=== PATIENT | male | born 1945 | race Caucasian/White ===

== ENCOUNTER 2017-04-18 13:10 | Inpatient (IN) | payer MEDICARE, OTHER ==
[2017-04-18 13:44] LABS: CHLORIDE,CL 106 mEq/L (98-106); SODIUM,NA 142 mEq/L (136-145)
[2017-04-18] MEDS ORDERED: Sodium Chloride 0.9% 10 ML Syringe FLUSH PRN (14:42)
[2017-04-18] MEDS ORDERED: Ondansetron 4 MG Tab.DIS PO PRN (14:42)
[2017-04-18] MEDS ORDERED: Acetaminophen 325 MG Tab PO PRN (14:42)
[2017-04-18] MEDS ORDERED: Furosemide 40 MG/4 ML VIAL IVPUSH ONE (14:46)
[2017-04-18] MEDS ORDERED: Enoxaparin 80 MG/0.8 ML Syringe SUBCUT SCH (15:00)
[2017-04-18] MEDS ORDERED: Pantoprazole 40 MG Vial IVPUSH SCH (15:00)
[2017-04-18] MEDS: Metoprolol Succinate 25 MG Tab.ER PO SCH (19:47)
[2017-04-18] MEDS: Zolpidem 5 MG Tab PO PRN (22:12)
[2017-04-19] MEDS: Lisinopril 20 MG Tab PO SCH (07:37)
[2017-04-19] MEDS: Amiodarone 200 MG Tab PO SCH (07:37)
[2017-04-19] MEDS: atorvaSTATin 10 MG Tab PO SCH ×2 (07:38→20:00)
[2017-04-19] MEDS: Clopidogrel 75 MG Tab PO SCH (07:39)
[2017-04-19] MEDS: Pantoprazole 40 MG Vial IVPUSH SCH (07:40)
[2017-04-19] MEDS: Metoprolol Succinate 25 MG Tab.ER PO SCH ×2 (07:41→20:00)
[2017-04-19] MEDS ORDERED: Enoxaparin 80 MG/0.8 ML Syringe SUBCUT SCH (08:00)
[2017-04-19] MEDS ORDERED: Aspirin 81 MG Tab.EC PO SCH (08:00)
[2017-04-19] MEDS ORDERED: metFORMIN 500 MG Tab.ER PO SCH (12:00)
--- NOTE | 2017-04-19 15:16 | PCM.PN ---
- General Info Date of Service: 04/19/17 Functional Status: Reports: Pain Controlled, Tolerating Diet. Denies: Ambulating - Review of Systems General: Denies: Weakness, Fatigue HEENT: Reports: No Symptoms Pulmonary: Reports: Shortness of Breath (feels shortness of breath is already improved). Denies: Cough Cardiovascular: Reports: Edema (LLE more edematous than right). Denies: Chest Pain, Lightheadedness Gastrointestinal: Reports: No Symptoms Genitourinary: Reports: No Symptoms Musculoskeletal: Reports: No Symptoms Skin: Reports: No Symptoms Neurological: Reports: No Symptoms - Patient Data Vitals - Most Recent: Last Vital Signs Temp 97.7 F 04/19/17 08:00 Pulse 85 04/19/17 08:00 Resp 18 04/19/17 08:00 BP 146/92 H 04/19/17 08:00 Pulse Ox 96 04/19/17 08:00 Weight - Most Recent: 243 lb 1.6 oz I&O - Last 24 Hours: Intake & Output 04/19/17 04/19/17 04/19/17 06:59 14:59 22:59 Intake Total 1150 Balance 1150 Lab Results Last 24 Hours: Laboratory Results - last 24 hr 04/18/17 04/18/17 04/19/17 Range/Units 17:23 20:22 07:00 Sodium 141 (136-145) mEq/L Potassium 4.0 (3.5-5.0) mEq/L Chloride 106 (98-106) mEq/L Carbon Dioxide 26 (21-32) mmol/L BUN 23 H (7-18) mg/dL Creatinine 1.3 (0.7-1.3) mg/dL Est Cr Clr Drug Dosing 59.75 mL/min Estimated GFR (MDRD) 55 L (>=60) mL/min Glucose 113 H (75-99) mg/dL POC Glucose 121 H 134 H (75-105) mg/dl Calcium 8.5 (8.4-10.1) mg/dL 04/19/17 Range/Units 07:33 Sodium (136-145) mEq/L Potassium (3.5-5.0) mEq/L Chloride (98-106) mEq/L Carbon Dioxide (21-32) mmol/L BUN (7-18) mg/dL Creatinine (0.7-1.3) mg/dL Est Cr Clr Drug Dosing mL/min Estimated GFR (MDRD) (>=60) mL/min Glucose (75-99) mg/dL POC Glucose 103 (75-105) mg/dl Calcium (8.4-10.1) mg/dL Med Orders - Current: Current Medications Acetaminophen (Tylenol) 650 mg PO Q4H PRN PRN Reason: Pain (Mild 1-3)/fever Amiodarone HCl (Cordarone) 200 mg PO DAILY [facility] Last Admin: 04/19/17 07:37 Dose: 200 mg Apixaban (Eliquis) 10 mg PO BID [facility] Atorvastatin Calcium (Lipitor) 10 mg PO BEDTIME [facility] Last Admin: 04/19/17 07:38 Dose: 10 mg Clopidogrel Bisulfate (Plavix) 75 mg PO DAILY [facility] Last Admin: 04/19/17 07:39 Dose: 75 mg Lisinopril (Prinivil) 10 mg PO DAILY [facility] Last Admin: 04/19/17 07:37 Dose: 10 mg [facility] Metoprolol Succinate (Toprol Xl) 12.5 mg PO BID [facility] Last Admin: 04/19/17 07:41 Dose: 12.5 mg Ondansetron HCl (Zofran Odt) 4 mg PO Q4H PRN PRN Reason: nausea, able to take PO Pantoprazole Sodium (Protonix Iv) 40 mg IVPUSH Q24H [facility] Last Admin: 04/19/17 07:40 Dose: 40 mg Sodium Chloride (Saline Flush) 10 ml FLUSH ASDIRECTED PRN PRN Reason: Keep Vein Open Zolpidem Tartrate (Ambien) 5 mg PO BEDTIME PRN PRN Reason: Sleep Last Admin: 04/18/17 22:12 Dose: 5 mg Discontinued Medications Aspirin (Halfprin) 81 mg PO BID [facility] Last Admin: 04/19/17 07:38 Dose: 81 mg Enoxaparin Sodium (Lovenox) 80 mg SUBCUT Q12H [facility] Last Admin: 04/18/17 16:15 Dose: 80 mg Enoxaparin Sodium (Lovenox) 80 mg SUBCUT Q12H [facility] Last Admin: 04/19/17 07:43 Dose: 80 mg Furosemide (Lasix) 40 mg IVPUSH ONETIME ONE Stop: 04/18/17 14:47 Last Admin: 04/18/17 16:16 Dose: 40 mg Metformin HCl (Glucophage Xr) 1,500 mg PO DAILY [facility] Last Admin: 04/19/17 14:31 Dose: Not Given Pantoprazole Sodium (Protonix Iv) 40 mg IVPUSH Q24H [facility] Last Admin: 04/18/17 16:16 Dose: 40 mg - Exam General: Alert, Oriented HEENT: Mucous Membr. Moist/[place] Neck: Supple Lungs: Clear to Auscultation, Normal Respiratory Effort Cardiovascular: Regular Rate, Regular Rhythm GI/Abdominal Exam: Normal Bowel Sounds, Soft, Non-Tender Extremities: Normal Inspection, Pedal Edema (pitting edema in LLE 2+, 1+ RLE) Skin: Warm, Dry Neurological: No New Focal Deficit - Problem List & Annotations (1) DVT (deep venous thrombosis) SNOMED Code(s): 127248988 Code(s): I82.409 - ACUTE EMBOLISM AND THOMBOS UNSP DEEP VN UNSP LOWER EXTREMITY Status: Acute Priority: High Current Visit: Yes Qualifiers: DVT location: lower extremity Affected thrombotic vein of extremity: popliteal Chronicity: acute Laterality: left Qualified Code(s): I82.432 - Acute embolism and thrombosis of left popliteal vein (2) Pulmonary embolism SNOMED Code(s): 66253802 Code(s): I26.99 - OTHER PULMONARY EMBOLISM WITHOUT ACUTE COR PULMONALE Status: Acute Priority: High Current Visit: Yes Qualifiers: Chronicity: acute Acute cor pulmonale presence: without acute cor pulmonale - Problem List Review Problem List Initiated/Reviewed/Updated: Yes - My Orders Last 24 Hours: My Active Orders 04/19/17 17:30 metFORMIN [Glucophage XR] 750 mg PO BIDMEALS - Assessment Assessment:: DVT/PE - Plan Plan:: Patient states is feeling much better today, slept well. Feels like appetite has even improved. Was found to have DVT in popliteal vein of LLE. Has been on Plavix and ASA since his stent placed in September. 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 Has felt well since that time. Has been combining consistently over the last 3 weeks and admits his activity level was down. Labs stable. Contacted Dr. Shepard, cardiology at [place] in regards to starting Eliquis in addition to his usual meds. Recommended continuing Plavix and either starting Coumadin or Eliquis and stopping the aspirin. Encouraged patient to ambulate in halls. If sats remain stable with activity, will discharge home tomorrow.
[2017-04-19] MEDS: metFORMIN 500 MG Tab.ER PO SCH (18:10)
[2017-04-19] MEDS: Apixaban 5 MG Tab PO SCH (20:00)
[2017-04-19] MEDS: Zolpidem 5 MG Tab PO PRN (20:05)
[2017-04-20 07:27] VITALS: BP 138/94
[2017-04-20] MEDS: metFORMIN 500 MG Tab.ER PO SCH (07:39)
[2017-04-20] MEDS: Amiodarone 200 MG Tab PO SCH (07:40)
[2017-04-20] MEDS: Apixaban 5 MG Tab PO SCH (07:40)
[2017-04-20] MEDS: Lisinopril 20 MG Tab PO SCH (07:40)
[2017-04-20] MEDS: Clopidogrel 75 MG Tab PO SCH (07:41)
[2017-04-20] MEDS: Metoprolol Succinate 25 MG Tab.ER PO SCH (07:41)
[2017-04-20] MEDS: Pantoprazole 40 MG Vial IVPUSH SCH (07:42)
[2017-04-20] MEDS ORDERED: Furosemide 40 MG Tab PO SCH (08:00)
--- NOTE | 2017-04-20 13:02 | PCM.DCSUM1 ---
Discharge Summary - Hospital Course Free Text/Narrative:: Patient presented to clinic to see Dr. Law with increased shortness of breath and fatigue. Had been combining steadily for about 3 weeks and had limited physical activity. Found to have DVT of left popliteal. Has been on Plavix and aspirin since September after having a stent placed. The stent uncoiled and required emergency CABG. Had done well since then. Admits that he has had swelling in his lower extremities but hadn't noted any increase in that. - Discharge Data Discharge Date: 04/20/17 Discharge Disposition: Home, Self-Care 01 Condition: Good - Discharge Diagnosis/Problem(s) (1) DVT (deep venous thrombosis) SNOMED Code(s): 079940203 ICD Code: I82.409 - ACUTE EMBOLISM AND THOMBOS UNSP DEEP VN UNSP LOWER EXTREMITY Status: Acute Priority: High Current Visit: Yes Qualifiers: DVT location: lower extremity Affected thrombotic vein of extremity: popliteal Chronicity: acute Laterality: left Qualified Code(s): I82.432 - Acute embolism and thrombosis of left popliteal vein (2) Pulmonary embolism SNOMED Code(s): 55730220 ICD Code: I26.99 - OTHER PULMONARY EMBOLISM WITHOUT ACUTE COR PULMONALE Status: Acute Priority: High Current Visit: Yes Qualifiers: Chronicity: acute Acute cor pulmonale presence: without acute cor pulmonale (3) CHF (congestive heart failure) SNOMED Code(s): 48693286 ICD Code: I50.9 - HEART FAILURE, UNSPECIFIED Status: Acute Priority: High Current Visit: Yes Qualifiers: Congestive heart failure type: systolic Congestive heart failure chronicity : acute Qualified Code(s): I50.21 - Acute systolic (congestive) heart failure - Patient Summary/Data Complications: none Hospital Course: Patient admitted and started on Lovenox SQ for DVT, questionable PE. Also given IV Lasix and had good results and improvement of overall shortness of breath. Admits that hasn't felt this good in weeks. Tolerating ambulation without drop in oxygen sats. Sleeping well, appetite has returned. Echocardiogram that had been done shows decreased ejection fracture. He has not seen cardiology since the CABG, only had follow up with the surgeon. Yesterday, I contacted Dr. Shepard, cardiology, on recommendations about adding Eliquis with use of Plavix and ASA. Advised to stop aspirin so this was accomplished. Dr. Law had reduced his Lisinopril but blood pressures are creeping up so will resume his dose back to 20 mg daily. Will schedule patient to follow up with cardiology for acute systolic CHF. Patient will be discharged home on Lasix, Eliquis, Ambien and his usual meds, stop ASA. Follow up with Dr. Law in 2 weeks. - Patient Instructions Diet: Heart Healthy Diet Activity: As Tolerated - Discharge Plan Prescriptions/Med Rec: Apixaban [Eliquis] 10 mg PO BID #12 tablet Furosemide [Lasix] 40 mg PO DAILY #30 tablet Zolpidem [Ambien] 5 mg PO BEDTIME PRN #30 tablet PRN Reason: Insomnia Home Medications: Home Meds Multivit-Min/FA/Lycopene/Lut [Centrum Silver Tablet] 1 tab PO DAILY 06/23/15 [ History] Amiodarone HCl [Pacerone] 200 mg PO DAILY 10/19/16 [History] Cholecalciferol (Vitamin D3) [Vitamin D3] 4,000 units PO DAILY 10/19/16 [History ] Clopidogrel [Plavix] 75 mg PO DAILY 10/19/16 [History] Hydrocodone/Acetaminophen [Hydrocodon-Acetaminophn 10-325] 1 each PO Q4HR PRN [History] Lisinopril 20 mg PO DAILY 10/19/16 [History] Omeprazole 20 mg PO DAILY 10/19/16 [History] atorvaSTATin Calcium [Atorvastatin Calcium] 10 mg PO DAILY 10/19/16 [History] metFORMIN [Glucophage XR] 750 mg PO BID 10/19/16 [History] Metoprolol Succinate [Toprol XL] 12.5 mg PO BID 04/18/17 [History] Apixaban [Eliquis] 10 mg PO BID #12 tablet 04/20/17 [Rx] Furosemide [Lasix] 40 mg PO DAILY #30 tablet 04/20/17 [Rx] Zolpidem [Ambien] 5 mg PO BEDTIME PRN #30 tablet 04/20/17 [Rx] - Discharge Summary/Plan Comment DC Time >30 min.: No Discharge Summary/Plan Comment: Discharge home on Eliquis 10 BID for total 7 days and then switch to 5 mg BID. Continue Plavix. Start Lasix and Ambien and usual meds. Follow up with Dr. Law in 2 weeks and awaiting appointment with cardiology at [place] as well. - General Info Date of Service: 04/20/17 Admission Dx/Problem (Free Text: DVT/PE Acute systolic CHF Functional Status: Reports: Pain Controlled, Tolerating Diet, Ambulating - Review of Systems General: Denies: Fever, Weakness, Fatigue HEENT: Reports: No Symptoms Pulmonary: Denies: Shortness of Breath, Cough Cardiovascular: Reports: Edema. Denies: Chest Pain, Lightheadedness Gastrointestinal: Reports: No Symptoms Genitourinary: Reports: No Symptoms Musculoskeletal: Reports: No Symptoms Skin: Reports: No Symptoms Neurological: Reports: No Symptoms - Patient Data Vitals - Most Recent: Last Vital Signs Temp 97.4 F 04/20/17 07:26 Pulse 80 04/20/17 07:41 Resp 20 04/20/17 07:26 BP 138/94 H 04/20/17 07:41 Pulse Ox 98 04/20/17 07:26 Weight - Most Recent: 245 lb 5.992 oz I&O - Last 24 hours: Intake & Output 04/19/17 04/20/17 04/20/17 22:59 06:59 14:59 Intake Total 3205 1150 Output Total 600 2450 1100 Balance 2605 -1300 -1100 Lab Results - Last 24 hrs: Laboratory Results - last 24 hr 04/19/17 04/19/17 04/19/17 Range/Units 11:34 17:49 20:33 Sodium (136-145) mEq/L Potassium (3.5-5.0) mEq/L Chloride (98-106) mEq/L Carbon Dioxide (21-32) mmol/L BUN (7-18) mg/dL Creatinine (0.7-1.3) mg/dL Est Cr Clr Drug Dosing mL/min Estimated GFR (MDRD) (>=60) mL/min Glucose (75-99) mg/dL POC Glucose 147 H 120 H 185 H (75-105) mg/dl Calcium (8.4-10.1) mg/dL 04/20/17 04/20/17 04/20/17 Range/Units 07:15 07:26 12:06 Sodium 141 (136-145) mEq/L Potassium 4.3 (3.5-5.0) mEq/L Chloride 106 (98-106) mEq/L Carbon Dioxide 27 (21-32) mmol/L BUN 20 H (7-18) mg/dL Creatinine 1.3 (0.7-1.3) mg/dL Est Cr Clr Drug Dosing 59.75 mL/min Estimated GFR (MDRD) 55 L (>=60) mL/min Glucose 125 H (75-99) mg/dL POC Glucose 125 H 115 H (75-105) mg/dl Calcium 8.6 (8.4-10.1) mg/dL Med Orders - Current: Current Medications Acetaminophen (Tylenol) 650 mg PO Q4H PRN PRN Reason: Pain (Mild 1-3)/fever Amiodarone HCl (Cordarone) 200 mg PO DAILY [facility] Last Admin: 04/20/17 07:40 Dose: 200 mg Apixaban (Eliquis) 10 mg PO BID [facility] Last Admin: 04/20/17 07:40 Dose: 10 mg Atorvastatin Calcium (Lipitor) 10 mg PO BEDTIME [facility] Last Admin: 04/19/17 20:00 Dose: 10 mg Clopidogrel Bisulfate (Plavix) 75 mg PO DAILY [facility] Last Admin: 04/20/17 07:41 Dose: 75 mg Furosemide (Lasix) 40 mg PO DAILY [facility] Last Admin: 04/20/17 07:42 Dose: 40 mg Lisinopril (Prinivil) 10 mg PO DAILY [facility] Last Admin: 04/20/17 07:40 Dose: 10 mg Metformin HCl (Glucophage Xr) 750 mg PO BIDMEALS [facility] Last Admin: 04/20/17 07:39 Dose: 750 mg Metoprolol Succinate (Toprol Xl) 12.5 mg PO BID [facility] Last Admin: 04/20/17 07:41 Dose: 12.5 mg Ondansetron HCl (Zofran Odt) 4 mg PO Q4H PRN PRN Reason: nausea, able to take PO Pantoprazole Sodium (Protonix Iv) 40 mg IVPUSH Q24H [facility] Last Admin: 04/20/17 07:42 Dose: 40 mg Sodium Chloride (Saline Flush) 10 ml FLUSH ASDIRECTED PRN PRN Reason: Keep Vein Open Zolpidem Tartrate (Ambien) 5 mg PO BEDTIME PRN PRN Reason: Sleep Last Admin: 04/19/17 20:05 Dose: 5 mg Discontinued Medications Aspirin (Halfprin) 81 mg PO BID [facility] Last Admin: 04/19/17 07:38 Dose: 81 mg Enoxaparin Sodium (Lovenox) 80 mg SUBCUT Q12H [facility] Last Admin: 04/18/17 16:15 Dose: 80 mg Enoxaparin Sodium (Lovenox) 80 mg SUBCUT Q12H [facility] Last Admin: 04/19/17 07:43 Dose: 80 mg Furosemide (Lasix) 40 mg IVPUSH ONETIME ONE Stop: 04/18/17 14:47 Last Admin: 04/18/17 16:16 Dose: 40 mg Metformin HCl (Glucophage Xr) 1,500 mg PO DAILY [facility] Last Admin: 04/19/17 14:31 Dose: Not Given Pantoprazole Sodium (Protonix Iv) 40 mg IVPUSH Q24H [facility] Last Admin: 04/18/17 16:16 Dose: 40 mg - Exam General: Reports: Alert, Oriented HEENT: Reports: Mucous Membr. Moist/[place] Neck: Reports: Supple Lungs: Reports: Clear to Auscultation, Normal Respiratory Effort Cardiovascular: Reports: Regular Rate, Regular Rhythm GI/Abdominal Exam: Normal Bowel Sounds, Soft, Non-Tender Extremities: Normal Inspection, Pedal Edema (1+ edema) Skin: Reports: Warm, Dry Neurological: Reports: No New Focal Deficit *Q Meaningful Use (DIS) - VTE *Q VTE Criteria *Q: - Stroke *Q Stroke Criteria *Q: - AMI *Q AMI Criteria *Q:
== END 2017-04-20 13:43 | disposition home or self-care (01) | DRG 299 ==
LOC: CC.US 13:10 → CC.MS 14:20 → UNDOADMIN 14:20 → CC.MS 14:43
PROVIDERS: ADMIT Family Medicine; ATTEND Family Medicine
DX: I82.432 Acute embolism and thrombosis of left popliteal vein (principal); I26.99 Other pulmonary embolism without acute cor pulmonale; I25.810 Atherosclerosis of coronary artery bypass graft(s) without angina pectoris; E78.5 Hyperlipidemia, unspecified; I11.0 Hypertensive heart disease with heart failure; I50.9 Heart failure, unspecified; R06.02 Shortness of breath; Z95.1 Presence of aortocoronary bypass graft; N40.0 Benign prostatic hyperplasia without lower urinary tract symptoms; E11.9 Type 2 diabetes mellitus without complications; Z88.1 Allergy status to other antibiotic agents; Z79.84 Long term (current) use of oral hypoglycemic drugs; Z79.82 Long term (current) use of aspirin; Z79.899 Other long term (current) drug therapy; Z79.02 Long term (current) use of antithrombotics/antiplatelets
CPT/HCPCS: 36415; 71020; 80048; 80053; 81001; 82962; 83880; 84443; 84484; 85025; 85379; 86140; 93005; 93010; 93306; A9270-GY; C9113; G0365; J1650; J1940

== ENCOUNTER 2017-05-18 08:45 | Emergency (ER) | payer MEDICARE, OTHER ==
[2017-05-18 08:52] VITALS: BP 126/89
--- NOTE | 2017-05-18 09:43 | EDM.PDOC ---
ED HPI GENERAL MEDICAL PROBLEM - General Chief Complaint: Cardiovascular Problem Stated Complaint: "fluid around heart again" Time Seen by Provider: 05/18/17 09:15 Source of Information: Reports: Patient, Family History Limitations: Reports: No Limitations - History of Present Illness INITIAL COMMENTS - FREE TEXT/NARRATIVE: Has been feeling more short of Breathe with coughing up yellow mucus. No fever or chills. voices concern that he has fluid around his heart again. Everybody in the house has been sick with URI symptoms and are improving. He doesn't seem to be getting better as fast. Has not noted any edema. Hasn't been sleeping as well. Was recently started on sleeping pills by Dr. Law and they help until about 3am and then he is awake for few hours and then sleeps again. Has not been having any chest pains. Does have cardiology appt June 13 in [place] for follow up. Onset: Gradual Location: Reports: Chest Quality: Denies: Pressure Associated Symptoms: Reports: cough w sputum, Shortness of Breath. Denies: Chest Pain, Fever/Chills, Nausea/Vomiting - Related Data Allergies Allergy/AdvReac Type Severity Reaction Status Date / Time amoxicillin trihydrate Allergy Rash Verified 05/18/17 08:52 [From Augmentin] potassium clavulanate Allergy Rash Verified 05/18/17 08:52 [From Augmentin] Home Meds: Home Meds Multivit-Min/FA/Lycopene/Lut [Centrum Silver Tablet] 1 tab PO DAILY 06/23/15 [ History] Amiodarone HCl [Pacerone] 200 mg PO DAILY 10/19/16 [History] Cholecalciferol (Vitamin D3) [Vitamin D3] 4,000 units PO DAILY 10/19/16 [History ] Clopidogrel [Plavix] 75 mg PO DAILY 10/19/16 [History] Lisinopril 20 mg PO DAILY 10/19/16 [History] Omeprazole 20 mg PO DAILY 10/19/16 [History] atorvaSTATin Calcium [Atorvastatin Calcium] 10 mg PO DAILY 10/19/16 [History] metFORMIN [Glucophage XR] 750 mg PO BID 10/19/16 [History] Metoprolol Succinate [Toprol XL] 12.5 mg PO BID 04/18/17 [History] Furosemide [Lasix] 40 mg PO DAILY #30 tablet 04/20/17 [Rx] Zolpidem [Ambien] 5 mg PO BEDTIME PRN #30 tablet 04/20/17 [Rx] Apixaban [Eliquis] 5 mg PO BID 05/18/17 [History] Past Medical History Cardiovascular History: Reports: Bypass, High Cholesterol, Hypertension, Stents , Other (See Below) Other Cardiovascular History: were placing stents during angiogram and tore aorta which needed repairing. Other Genitourinary History: BPH on history Neurological History: Reports: None Endocrine/Metabolic History: Reports: Diabetes, Type II Other Endocrine/Metabolic History: newly diagnosed diabetic on oral meds; says his BS runs about 140's in the mornings, discussed - Past Surgical History Musculoskeletal Surgical History: Reports: Knee Replacement Social & Family History - Family History Family Medical History: Noncontributory - Tobacco Use Smoking Status *Q: Never Smoker Used Tobacco, but Quit: Yes Month Tobacco Last Used: years - Caffeine Use Caffeine Use: Reports: Coffee - Recreational Drug Use Recreational Drug Use: No ED ROS GENERAL - Review of Systems Review Of Systems: See Below Constitutional: Reports: Weakness, Fatigue. Denies: Fever, Chills HEENT: Reports: Rhinitis, Sinus Problem. Denies: Ear Discharge, Vertigo Respiratory: Reports: No Symptoms Cardiovascular: Denies: Chest Pain, Edema GI/Abdominal: Reports: No Symptoms Musculoskeletal: Reports: No Symptoms Skin: Reports: No Symptoms Neurological: Reports: No Symptoms ED EXAM, GENERAL - Physical Exam Exam: See Below Exam Limited By: No Limitations General Appearance: Alert, WD/WN, No Apparent Distress Ears: Normal External Exam, Normal Canal Throat/Mouth: Normal Inspection, Normal Oropharynx Head: Atraumatic, Normocephalic Neck: Normal Inspection, Supple, Non-Tender, Full Range of Motion Respiratory/Chest: No Respiratory Distress, Lungs Clear, Normal Breath Sounds Cardiovascular: Normal Peripheral Pulses, Regular Rate, Rhythm, No Edema GI/Abdominal: Normal Bowel Sounds, Soft, Non-Tender, No Organomegaly Back Exam: Normal Inspection Extremities: Normal Inspection, No Pedal Edema, Normal Capillary Refill Neurological: Alert, Oriented, Normal Cognition Psychiatric: Normal Mood Skin Exam: Warm, Dry, Intact Course - Vital Signs Last Recorded V/S: Last Vital Signs Temp 97.1 F 05/18/17 08:50 Pulse 90 05/18/17 08:50 Resp 20 05/18/17 08:50 BP 126/89 05/18/17 08:50 Pulse Ox 97 05/18/17 09:37 - Orders/Labs/Meds Orders: Active Orders 24 hr Category Date Time Status Chest 2V [CR] Stat Exams 05/18/17 09:08 Taken Labs: Laboratory Tests 05/18/17 05/18/17 05/18/17 Range/Units 09:15 09:15 09:15 WBC 9.9 (5.0-10.0) 10^3/uL RBC 4.57 (4.50-6.00) 10^6/uL Hgb 13.1 L (14.0-18.0) g/dL Hct 41.1 (40.0-54.0) % MCV 89.9 (82.0-94.0) fL MCH 28.7 (27.0-32.0) pg MCHC 31.9 L (33.0-38.0) g/dL RDW Coeff of Shantel 15.2 H (11.0-15.0) % Plt Count 208 (150-400) 10^3/uL Neut % (Auto) 77.0 (35-85) % Lymph % (Auto) 13.0 (10-55) % [place] % (Auto) 8.6 (0-16) % Eos % (Auto) 1.1 (0-5) % Baso % (Auto) 0.3 (0-3) % Neut # (Auto) 7.58 H (1.80-7.00) 10^3/uL Lymph # (Auto) 1.28 (1.00-4.80) 10^3/uL [place] # (Auto) 0.85 H (0.00-0.80) 10^3/uL Eos # (Auto) 0.11 (0.00-0.45) 10^3/uL Baso # (Auto) 0.03 10^3/uL PT (9.7-12.3) SEC INR (0.92-1.18) APTT (24.5-30.9) SEC D-Dimer, Quantitative 0.79 H (0.00-0.50) Sodium 143 (136-145) mEq/L Potassium 3.7 (3.5-5.0) mEq/L Chloride 104 (98-106) mEq/L Carbon Dioxide 28 (21-32) mmol/L BUN 23 H (7-18) mg/dL Creatinine 1.5 H (0.7-1.3) mg/dL Est Cr Clr Drug Dosing 51.79 mL/min Estimated GFR (MDRD) 46 L (>=60) mL/min Glucose 149 H (75-99) mg/dL Calcium 8.9 (8.4-10.1) mg/dL Total Bilirubin 1.0 (0.0-1.0) mg/dL AST 17 (15-37) U/L ALT 38 (12-78) U/L Alkaline Phosphatase 65 (46-116) U/L Lactate Dehydrogenase 169 (100-190) U/L Creatine Kinase 84 (35-232) U/L Troponin I 0.064 H (0.00-0.06) ng/mL C-Reactive Protein 0.2 (0.2-0.8) mg/dL NT-Pro-B Natriuret Pep 5773 H (0-1000) pg/mL Total Protein 7.1 (6.4-8.2) g/dL Albumin 3.8 (3.4-5.0) g/dL 05/18/17 Range/Units 09:15 WBC (5.0-10.0) 10^3/uL RBC (4.50-6.00) 10^6/uL Hgb (14.0-18.0) g/dL Hct (40.0-54.0) % MCV (82.0-94.0) fL MCH (27.0-32.0) pg MCHC (33.0-38.0) g/dL RDW Coeff of Shantel (11.0-15.0) % Plt Count (150-400) 10^3/uL Neut % (Auto) (35-85) % Lymph % (Auto) (10-55) % [place] % (Auto) (0-16) % Eos % (Auto) (0-5) % Baso % (Auto) (0-3) % Neut # (Auto) (1.80-7.00) 10^3/uL Lymph # (Auto) (1.00-4.80) 10^3/uL [place] # (Auto) (0.00-0.80) 10^3/uL Eos # (Auto) (0.00-0.45) 10^3/uL Baso # (Auto) 10^3/uL PT 12.1 (9.7-12.3) SEC INR 1.12 (0.92-1.18) APTT 27.4 (24.5-30.9) SEC D-Dimer, Quantitative (0.00-0.50) Sodium (136-145) mEq/L Potassium (3.5-5.0) mEq/L Chloride (98-106) mEq/L Carbon Dioxide (21-32) mmol/L BUN (7-18) mg/dL Creatinine (0.7-1.3) mg/dL Est Cr Clr Drug Dosing mL/min Estimated GFR (MDRD) (>=60) mL/min Glucose (75-99) mg/dL Calcium (8.4-10.1) mg/dL Total Bilirubin (0.0-1.0) mg/dL AST (15-37) U/L ALT (12-78) U/L Alkaline Phosphatase (46-116) U/L Lactate Dehydrogenase (100-190) U/L Creatine Kinase (35-232) U/L Troponin I (0.00-0.06) ng/mL C-Reactive Protein (0.2-0.8) mg/dL NT-Pro-B Natriuret Pep (0-1000) pg/mL Total Protein (6.4-8.2) g/dL Albumin (3.4-5.0) g/dL - Re-Assessments/Exams Free Text/Narrative Re-Assessment/Exam: 05/18/17 10:[address] Law regarding his labs, EKG and CXR. He did recommend that his lasix is increased to BID and he wants to see him on Monday in [place]. Appt made. Discussed this with and pt and they are in agreement with the plan. Departure - Departure Time of Disposition: 10:33 Disposition: Home, Self-Care 01 Condition: Good Clinical Impression: CHF (congestive heart failure) Qualifiers: Congestive heart failure type: systolic Congestive heart failure chronicity: acute Qualified Code(s): I50.21 - Acute systolic (congestive) heart failure Referrals: Liban Law MD [Primary Care Provider] - Forms: ED Department Discharge Additional Instructions: Increase Lasix to twice a day. See Dr. Law on Monday in [place] May 22. If you have increase in Shortness of breathe or fever then recheck before that. - Problem List & Annotations (1) CHF (congestive heart failure) SNOMED Code(s): 84217126 Code(s): I50.9 - HEART FAILURE, UNSPECIFIED Status: Acute Priority: High Qualifiers: Congestive heart failure type: systolic Congestive heart failure chronicity : acute Qualified Code(s): I50.21 - Acute systolic (congestive) heart failure - Problem List Review Problem List Initiated/Reviewed/Updated: Yes - My Orders Last 24 Hours: My Active Orders 05/18/17 09:08 Chest 2V [CR] Stat - Assessment/Plan Last 24 Hours: My Active Orders 05/18/17 09:08 Chest 2V [CR] Stat
== END 2017-05-18 10:45 | disposition home or self-care (01) ==
LOC: CC.ED 08:45
DX: I11.0 Hypertensive heart disease with heart failure (principal); I50.21 Acute systolic (congestive) heart failure; E11.9 Type 2 diabetes mellitus without complications; E78.00 Pure hypercholesterolemia, unspecified; Z95.1 Presence of aortocoronary bypass graft; Z95.5 Presence of coronary angioplasty implant and graft; Z87.891 Personal history of nicotine dependence; Z79.02 Long term (current) use of antithrombotics/antiplatelets; Z79.84 Long term (current) use of oral hypoglycemic drugs; Z79.899 Other long term (current) drug therapy; Z88.1 Allergy status to other antibiotic agents
CPT/HCPCS: 36415; 71020; 80053; 82550; 83615; 83880; 84484; 85025; 85379; 85610; 85730; 86140; 93005; 93010; 99284; 99285

== ENCOUNTER → 2018-09-07 | Day surgery (SDC) | payer MEDICARE, OTHER ==
[~2018-09-07] MED LIST: Lactated Ringers 1,000 ML IV SCH; Propofol 200 MG/20 ML SDV IV ONE
[2018-09-07 08:37] VITALS: BP 117/68
--- NOTE | 2018-09-07 09:10 | OR ---
DATE OF OPERATION: 09/07/2018 PREOPERATIVE DIAGNOSIS: SCREENING COLONOSCOPY. POSTOPERATIVE DIAGNOSIS: SCREENING COLONOSCOPY. SURGEON: Liban Law MD PROCEDURE: FULL-LENGTH COLONOSCOPY. ANESTHESIA: MAC via OCEANOLOGIST. COMPLICATIONS: None. SPECIMEN: None. FINDINGS: 1. Full-length colonoscopy. 2. [id number] sigmoid diverticulosis. 3. Large tubulovillous adenoma, distal sigmoid colon. RECOMMENDATIONS: Due to the size of this polyp, I would like Dr. Luz to have a surgical expertise in its removal and which should be able to be done via flex sig with a Fleet's prep. INDICATIONS: The patient was in for routine physical. It has been some time since his last screening exam. He elected to proceed. DESCRIPTION OF PROCEDURE: The patient was prepped and draped, placed in a left lateral decubitus position. A lubricated Olympus colonoscope was inserted and easily advanced to the cecum. Direct visualization of the ileocecal valve and appendiceal orifice was accomplished. Bowel prep was adequate. Upon withdrawal of the scope, the cecum, ascending, and transverse colon were benign. The patient has scattered diverticula throughout the left colon and most notably in the sigmoid as expected, mild to moderate in severity. No signs of any worrisome lesions until around 35 cm. The patient has a long, quite large tubulovillous adenoma. There is a good stalk on this. Due to its size, location and the fact that the patient is still on his Plavix, I do recommend that this be accomplished by surgery. It should be able to be accomplished with a flex sig and minimal prep as it is only about 30 to 35 cm from the anus. The rest of the rectosigmoid junction and rectal vault appeared benign. Retroflexion of the scope in the rectum showed no anal lesions. Air was suctioned. Scope was removed without complication. BOSSMAN/AVEL /[id number]
== END ==
LOC: CC.SDS 06:18
PROVIDERS: ATTEND Family Medicine
DX: Z12.11 Encounter for screening for malignant neoplasm of colon (principal); K57.30 Diverticulosis of large intestine without perforation or abscess without bleeding; D12.5 Benign neoplasm of sigmoid colon; Z79.02 Long term (current) use of antithrombotics/antiplatelets
CPT/HCPCS: G0121; J2704; J7120; 45378

== ENCOUNTER → 2018-10-18 | Day surgery (SDC) | payer MEDICARE, OTHER ==
[~2018-10-18] MED LIST changes: +Midazolam 1 MG/ML 2 ML SDV IV ONE; -Propofol 200 MG/20 ML SDV IV ONE
[2018-10-18 11:09] VITALS: BP 114/60
--- NOTE | 2018-10-18 16:15 | OR ---
DATE OF OPERATION: 10/18/2018 PREOPERATIVE DIAGNOSIS: LARGE COLON POLYP. POSTOPERATIVE DIAGNOSIS: LARGE COLON POLYP. SURGEON: Jayjay Luz MD PROCEDURE: FLEXIBLE SIGMOIDOSCOPY WITH SNARE EXCISION OF PEDUNCULATED SIGMOID POLYP. ANESTHESIA: Conscious sedation with IV Versed. SPECIMEN: Polyp. INDICATIONS: This 73-year-old male has had a colonoscopy, and then they reported in the rectal or sigmoid area, there was a large pedunculated polyp. The initial endoscopist referred this for me to take care of. DESCRIPTION OF PROCEDURE: After adequate preparation, a colonoscope was inserted into the rectum. This was passed up to the sigmoid area, and at about 30 to 35 cm, there was a large pedunculated polyp. A snare was placed around this and clipped off by cautery. This seemed to be perfectly adequate and not too much excessive mucosa resected. The polyp was grasped with a snare and retrieved for pathological evaluation. Other than some scattered sigmoid diverticula, no other abnormalities were noted. Air was suctioned from the colon and the scope removed. JENNIFER/AVEL /[id number]
== END ==
LOC: CC.SDS 07:39
PROVIDERS: ATTEND Surgery
DX: D12.5 Benign neoplasm of sigmoid colon (principal); K57.30 Diverticulosis of large intestine without perforation or abscess without bleeding; N40.0 Benign prostatic hyperplasia without lower urinary tract symptoms; I11.0 Hypertensive heart disease with heart failure; I50.9 Heart failure, unspecified; F32.9 Major depressive disorder, single episode, unspecified; E11.9 Type 2 diabetes mellitus without complications; K21.9 Gastro-esophageal reflux disease without esophagitis; E78.5 Hyperlipidemia, unspecified; I25.5 Ischemic cardiomyopathy; Z95.5 Presence of coronary angioplasty implant and graft; Z79.02 Long term (current) use of antithrombotics/antiplatelets; Z79.84 Long term (current) use of oral hypoglycemic drugs; Z79.899 Other long term (current) drug therapy
CPT/HCPCS: 88305; J2250; J7120

== ENCOUNTER 2020-04-23 11:01 | Emergency (ER) | payer MEDICARE, OTHER ==
[2020-04-23 11:16] VITALS: BP 132/65; PULSE 58
[2020-04-23 12:05] LABS: CHLORIDE,CL 99 mEq/L (98-106); SODIUM,NA 134 mEq/L (136-145)
[2020-04-23] MEDS ORDERED: Ondansetron 4 MG Tab.DIS PO ONE (12:19)
--- NOTE | 2020-04-23 12:41 | EDM.PDOC ---
ED HPI GENERAL MEDICAL PROBLEM - General Chief Complaint: Respiratory Problem Stated Complaint: +COVID Time Seen by Provider: 04/23/20 11:47 Source of Information: Reports: Patient, RN History Limitations: Reports: No Limitations - History of Present Illness INITIAL COMMENTS - FREE TEXT/NARRATIVE: Pt presents today for weakness. Is Covid + day 12. States that he does feel SOB but "not real bad" Concerned about his weakness that has not improved being he is on day 12. Cough is dry and intermittent. Denied any diarrhea. Appetite is down, states that he eats some but is not hungry. Denies loss of taste or smell at this time. some nausea with it but no vomiting. O2 sats are staying in mid 90"s when talking. He is able to walk around his house without difficulty but gets "winded" and weak. No fever in the last 2 days that he is aware of. Onset: Gradual Location: Reports: Generalized - Related Data Allergies Allergy/AdvReac Type Severity Reaction Status Date / Time amoxicillin trihydrate Allergy Rash Verified 10/17/18 16:38 [From Augmentin] potassium clavulanate Allergy Rash Verified 10/17/18 16:38 [From Augmentin] Home Meds: Home Meds Multivit-Min/FA/Lycopen/Lutein [Centrum Silver Tablet] 1 tab PO DAILY 06/23/15 [History] Clopidogrel [Plavix] 75 mg PO DAILY 10/19/16 [History] Omeprazole 20 mg PO DAILY 10/19/16 [History] atorvaSTATin Calcium [Atorvastatin Calcium] 10 mg PO BEDTIME 10/19/16 [History] metFORMIN [Glucophage XR] 750 mg PO BID 10/19/16 [History] Nitroglycerin [Nitrostat] 1 tab SL ASDIRECTED PRN 08/29/18 [History] Sertraline HCl 50 mg PO DAILY 08/29/18 [History] carvediloL [Carvedilol] 6.25 mg PO BID 08/29/18 [History] Apixaban [Eliquis] 5 mg PO BID 09/05/18 [History] Sacubitril/Valsartan [Entresto 97 mg-103 mg Tablet] 1 tab PO BID 09/05/18 [History] Past Medical History Cardiovascular History: Reports: Bypass, Heart Failure, High Cholesterol, Hypertension, Stents, Other (See Below) Other Cardiovascular History: were placing stents during angiogram and tore aorta which needed repairing.Cardiac Rehab Phase III, see nurse's note. Other Genitourinary History: BPH on history Neurological History: Reports: None Endocrine/Metabolic History: Reports: Diabetes, Type II Other Endocrine/Metabolic History: newly diagnosed diabetic on oral meds; says his BS runs about 140's in the mornings, discussed - Past Surgical History Musculoskeletal Surgical History: Reports: Knee Replacement Social & Family History - Family History Family Medical History: No Pertinent Family History - Tobacco Use Tobacco Use Status *Q: Former Tobacco User Used Tobacco, but Quit: Yes Month/Year Tobacco Last Used: 1989 - Caffeine Use Caffeine Use: Reports: Coffee - Recreational Drug Use Recreational Drug Use: No Drug Use in Last 12 Months: No - Living Situation & Occupation Living situation: Reports: , with Spouse Occupation: Retired ED ROS GENERAL - Review of Systems Review Of Systems: See Below Constitutional: Reports: Weakness, Fatigue, Decreased Appetite. Denies: Fever, Chills HEENT: Reports: No Symptoms Respiratory: Reports: Shortness of Breath, Cough Cardiovascular: Denies: Chest Pain, Edema Endocrine: Reports: Fatigue GI/Abdominal: Reports: Nausea. Denies: Abdominal Pain, Diarrhea : Reports: No Symptoms Musculoskeletal: Reports: No Symptoms Skin: Reports: No Symptoms ED EXAM, GENERAL - Physical Exam Exam: See Below Exam Limited By: No Limitations General Appearance: Alert, WD/WN, Mild Distress Ears: Normal External Exam, Normal Canal Nose: Normal Inspection Throat/Mouth: Normal Inspection, Normal Oropharynx, Normal Voice Head: Atraumatic, Normocephalic Neck: Normal Inspection, Supple, Non-Tender, Full Range of Motion Respiratory/Chest: No Respiratory Distress, Decreased Breath Sounds (to bases bilaterally. No wheezing noted. No rales currently.) Cardiovascular: Regular Rate, Rhythm, No Edema GI/Abdominal: Normal Bowel Sounds, Soft, Non-Tender Extremities: Normal Inspection, No Pedal Edema, Normal Capillary Refill Neurological: Alert, Oriented Skin Exam: Warm, Dry, Intact Course - Vital Signs Last Recorded V/S: Last Vital Signs Temp 98.7 F 04/23/20 11:08 Pulse 58 L 04/23/20 11:08 Resp 22 H 04/23/20 11:08 BP 132/65 04/23/20 11:08 Pulse Ox 95 04/23/20 11:08 - Orders/Labs/Meds Orders: Active Orders 24 hr Category Date Time Status Chest 2V [CR] Stat Exams 04/23/20 11:01 Taken Labs: Laboratory Tests 04/23/20 04/23/20 04/23/20 Range/Units 11:35 11:35 11:35 WBC 3.7 L (5.0-10.0) 10^3/uL RBC 4.06 L (4.50-6.00) 10^6/uL Hgb 11.9 L (14.0-18.0) g/dL Hct 36.3 L (40.0-54.0) % MCV 89.4 (82.0-94.0) fL MCH 29.3 (27.0-32.0) pg MCHC 32.8 L (33.0-38.0) g/dL RDW Coeff of Shantel 13.9 (11.0-15.0) % Plt Count 159 (150-400) 10^3/uL Neut % (Auto) 78.3 (35-85) % Lymph % (Auto) 11.0 (10-55) % Colbert % (Auto) 10.7 (0-16) % Eos % (Auto) 0 (0-5) % Baso % (Auto) 0 (0-3) % Neut # (Auto) 2.92 (1.80-7.00) 10^3/uL Lymph # (Auto) 0.41 L (1.00-4.80) 10^3/uL Colbert # (Auto) 0.40 (0.00-0.80) 10^3/uL Eos # (Auto) 0.00 (0.00-0.45) 10^3/uL Baso # (Auto) 0.00 10^3/uL PT 10.4 (9.7-12.3) SEC INR 1.03 (0.92-1.18) APTT 28.0 (23.2-32.3) SEC D-Dimer, Quantitative 0.81 H (0.00-0.50) Sodium 134 L (136-145) mEq/L Potassium 4.5 (3.5-5.0) mEq/L Chloride 99 (98-106) mEq/L Carbon Dioxide 20 L (21-32) mmol/L BUN 36 H (7-18) mg/dL Creatinine 1.8 H (0.7-1.3) mg/dL Est Cr Clr Drug Dosing 41.31 mL/min Estimated GFR (MDRD) 37 L (>=60) mL/min Glucose 95 (75-99) mg/dL Lactic Acid (0.4-2.0) mmol/L Calcium 8.5 (8.4-10.1) mg/dL Total Bilirubin 0.4 (0.0-1.0) mg/dL AST 25 (15-37) U/L ALT 23 (12-78) U/L Alkaline Phosphatase 58 (46-116) U/L Creatine Kinase 89 (35-232) U/L Troponin I < 0.017 (0.00-0.06) ng/mL NT-Pro-B Natriuret Pep 582 (0-1000) pg/mL Total Protein 7.8 (6.4-8.2) g/dL Albumin 3.6 (3.4-5.0) g/dL 04/23/20 Range/Units 11:35 WBC (5.0-10.0) 10^3/uL RBC (4.50-6.00) 10^6/uL Hgb (14.0-18.0) g/dL Hct (40.0-54.0) % MCV (82.0-94.0) fL MCH (27.0-32.0) pg MCHC (33.0-38.0) g/dL RDW Coeff of Shantel (11.0-15.0) % Plt Count (150-400) 10^3/uL Neut % (Auto) (35-85) % Lymph % (Auto) (10-55) % Colbert % (Auto) (0-16) % Eos % (Auto) (0-5) % Baso % (Auto) (0-3) % Neut # (Auto) (1.80-7.00) 10^3/uL Lymph # (Auto) (1.00-4.80) 10^3/uL Colbert # (Auto) (0.00-0.80) 10^3/uL Eos # (Auto) (0.00-0.45) 10^3/uL Baso # (Auto) 10^3/uL PT (9.7-12.3) SEC INR (0.92-1.18) APTT (23.2-32.3) SEC D-Dimer, Quantitative (0.00-0.50) Sodium (136-145) mEq/L Potassium (3.5-5.0) mEq/L Chloride (98-106) mEq/L Carbon Dioxide (21-32) mmol/L BUN (7-18) mg/dL Creatinine (0.7-1.3) mg/dL Est Cr Clr Drug Dosing mL/min Estimated GFR (MDRD) (>=60) mL/min Glucose (75-99) mg/dL Lactic Acid 1.0 (0.4-2.0) mmol/L Calcium (8.4-10.1) mg/dL Total Bilirubin (0.0-1.0) mg/dL AST (15-37) U/L ALT (12-78) U/L Alkaline Phosphatase (46-116) U/L Creatine Kinase (35-232) U/L Troponin I (0.00-0.06) ng/mL NT-Pro-B Natriuret Pep (0-1000) pg/mL Total Protein (6.4-8.2) g/dL Albumin (3.4-5.0) g/dL Meds: Medications Discontinued Medications Generic Name Dose Route Start Last Admin Trade Name Devika PRN Reason Stop Dose Admin Ondansetron HCl 8 mg 04/23/20 12:19 04/23/20 12:24 Zofran Odt PO 04/23/20 12:20 8 mg ONETIME ONE Administration - Re-Assessments/Exams Free Text/Narrative Re-Assessment/Exam: 04/23/20 1210 Discussed with pt at this time that he is stable to be discharged. Currently we are only admitting if you need supplemental oxygen and his saturations at this time are continuing in the 90's. Informed him that if the SOB would become worse then he needed to return and would be reevaluated. Discussed that he needs to be as active as possible and not to just lay in bed. Push fluids as much as possible and use the zofran for nausea to help with that. Departure - Departure Time of Disposition: 12:34 Disposition: Home, Self-Care 01 Condition: Fair Clinical Impression: COVID-19, Nausea - Discharge Information *PRESCRIPTION DRUG MONITORING PROGRAM REVIEWED*: Not Applicable *COPY OF PRESCRIPTION DRUG MONITORING REPORT IN PATIENT SANDER: Not Applicable Instructions: COVID-19 Frequently Asked Questions, COVID-19: How to Protect Yourself and Others - [facility] Referrals: PCP,Sreekanth [Primary Care Provider] - Forms: ED Department Discharge Additional Instructions: push fluids as much as possible Zofran as needed for nausea awilda slick to help with the nausea be up as much as possible Sepsis Event Note (ED) - Evaluation Sepsis Screening Result: No Definite Risk - Problem List & Annotations (1) COVID-19 SNOMED Code(s): 596339360 Code(s): U07.1 - COVID-19 Status: Acute - Problem List Review Problem List Initiated/Reviewed/Updated: Yes - My Orders Last 24 Hours: My Active Orders 04/23/20 11:01 Chest 2V [CR] Stat - Assessment/Plan Last 24 Hours: My Active Orders 04/23/20 11:01 Chest 2V [CR] Stat
== END 2020-04-23 13:57 | disposition home or self-care (01) ==
LOC: CC.ED 11:01
DX: U07.1 COVID-19 (principal); E78.00 Pure hypercholesterolemia, unspecified; I11.0 Hypertensive heart disease with heart failure; I50.9 Heart failure, unspecified; E11.9 Type 2 diabetes mellitus without complications; Z79.84 Long term (current) use of oral hypoglycemic drugs; Z79.01 Long term (current) use of anticoagulants; Z79.899 Other long term (current) drug therapy; Z87.891 Personal history of nicotine dependence; Z79.02 Long term (current) use of antithrombotics/antiplatelets; Z88.1 Allergy status to other antibiotic agents
CPT/HCPCS: 36415; 71046; 80053; 82550; 83605; 83880; 84484; 85025; 85379; 85610; 85730; 93005; 93010; 99284; 99285-25; A9270-GY

== ENCOUNTER → 2021-10-08 | Day surgery (SDC) | payer MEDICARE, OTHER ==
[~2021-10-08] MED LIST changes: +Ketamine 200 MG/20 ML MDV ONE; -Midazolam 1 MG/ML 2 ML SDV IV ONE; +Phenylephrine 1% 10 MG/ML SDV ONE; +Propofol 200 MG/20 ML SDV ONE; +fentaNYL 100 MCG/2 ML SDV ONE
[2021-10-08 08:55] VITALS: BP 115/62; PULSE 93
== END ==
LOC: CC.SDS 06:56
PROVIDERS: ATTEND Family Medicine
DX: Z12.11 Encounter for screening for malignant neoplasm of colon (principal); K57.30 Diverticulosis of large intestine without perforation or abscess without bleeding; I11.0 Hypertensive heart disease with heart failure; I50.9 Heart failure, unspecified; E78.5 Hyperlipidemia, unspecified; N40.0 Benign prostatic hyperplasia without lower urinary tract symptoms; E11.9 Type 2 diabetes mellitus without complications; I42.0 Dilated cardiomyopathy; K21.9 Gastro-esophageal reflux disease without esophagitis; F32.A Depression, unspecified; Z95.1 Presence of aortocoronary bypass graft; Z95.810 Presence of automatic (implantable) cardiac defibrillator; Z98.890 Other specified postprocedural states; Z88.0 Allergy status to penicillin; Z88.8 Allergy status to other drugs, medicaments and biological substances; Z79.899 Other long term (current) drug therapy; Z86.010 Personal history of colon polyps; Z79.01 Long term (current) use of anticoagulants; Z79.84 Long term (current) use of oral hypoglycemic drugs
CPT/HCPCS: J2370; J2704; J3010; J7120